=== PATIENT | female | born 1990 | race Hispanic/Latino ===

== ENCOUNTER 2019-03-18 03:24 | Inpatient (IN) | payer OTHER ==
[2019-03-18] MEDS ORDERED: PRENATAL VITAM1 EACH PO (06:48)
--- NOTE | 2019-03-18 10:08 | PR ---
[facility] [address], [place] [address] Signed Progress Notes IP Datetime Report Generated by CPN: 03/18/2019 10:08 PROGRESS NOTES: [id number] Impression: Normal progression of labor; Reassuring heart rate Procedures: Artificial ROM; Sterile Vag Exam Plan: Continue present management Informed Consent Obtain: Vaginal Delivery VITAL SIGNS: [id number] Vital Signs: Reviewed; Within Normal Limits EXAM: [id number] Dilatation: 3.5 Effacement: 75 Station: -2 Uterine Contractions: irregular MEMBRANES: [id number] Comments: Pt seen and examined. Doing well. Ctxs becoming uncomfortable. Cervix ripe. Discussed AROM and pt desires. AROM performed without difficulty for moderate amount of clear fluid. Mother and baby tolerated well. Pt may receive epidural on demand. Fetus A: [id number] FHR Baseline: 120 Variability: Moderate 6-25bpm Accelerations: 15X15 Decelerations: None FHR Category: Category I Presentation: Vertex Comments on Fetus A: No evidence of metabolic acidosis Fetus B: [id number] Signing Physician: Khris Rodríguez DO Copies: ~ *Electronically Signed* 03/18/19 1008 KHRIS RODRÍGUEZ DO PATIENT NAME: CRISSY GONZALEZ I PROGRESS NOTE DATE OF : 88 PHYSICIAN: KHRIS RODRÍGUEZ DO RPT #: [id number] REPORT IS CONFIDENTIAL AND NOT TO BE RELEASED WITHOUT AUTHORIZATION
--- NOTE | 2019-03-18 12:20 | PR ---
[facility] [address] [facility] [address] [place], [place] [address] Signed Progress Notes IP Datetime Report Generated by CPN: 03/18/2019 12:20 PROGRESS NOTES: [id number] Impression: Normal progression of labor; Reassuring heart rate Procedures: Artificial ROM; Sterile Vag Exam Plan: Continue present management Informed Consent Obtain: Vaginal Delivery VITAL SIGNS: [id number] Vital Signs: Reviewed; Within Normal Limits EXAM: [id number] Dilatation: 4.5 Effacement: 75 Station: -2 Uterine Contractions: q 2 minutes MEMBRANES: [id number] Comments: Pt seen and evaluated. Doing well. Comfortable w/ epidural. Ctxs regular. Progressing well. All questions answered. Fetus A: [id number] FHR Baseline: 130 Variability: Moderate 6-25bpm Accelerations: 15X15 Decelerations: None FHR Category: Category I Presentation: Vertex Comments on Fetus A: No evidence of metabolic acidosis Fetus B: [id number] Signing Physician: Khris Rodríguez DO Copies: ~ *Electronically Signed* 03/18/19 1220 KHRIS RODRÍGUEZ DO PATIENT NAME: CRISSY GONZALEZ I PROGRESS NOTE DATE OF : 88 PHYSICIAN: KHRIS RODRÍGUEZ DO RPT #: [id number] REPORT IS CONFIDENTIAL AND NOT TO BE RELEASED WITHOUT AUTHORIZATION
--- NOTE | 2019-03-18 17:13 | PR ---
[facility] [address] [facility] [place], [place] [address] Signed Progress Notes IP Datetime Report Generated by CPJasmina: 03/18/2019 17:13 PROGRESS NOTES: [id number] Impression: Normal progression of labor; Reassuring heart rate Procedures: Sterile Vag Exam Plan: Anticipate Vaginal Delivery Informed Consent Obtain: Vaginal Delivery VITAL SIGNS: [id number] Vital Signs: Reviewed; Within Normal Limits EXAM: [id number] Dilatation: 10.0 Effacement: 100 Station: 1 Uterine Contractions: q 2 minutes MEMBRANES: [id number] Comments: Pt seen and examined. Doing well. Comfortable w/ ctxs. Feeling some pressure. On exam, pt complete and +1 station. Will set up for delivery. Expect soon. Fetus A: [id number] FHR Baseline: 140 Variability: Moderate 6-25bpm Accelerations: 15X15 Decelerations: None FHR Category: Category I Presentation: Vertex Comments on Fetus A: No evidence of metabolic acidosis Fetus B: [id number] Signing Physician: Khris Rodríguez DO Copies: ~ *Electronically Signed* 03/18/19 7337 KHRIS RODRÍGUEZ DO PATIENT NAME: CRISSY GONZALEZ I PROGRESS NOTE DATE OF : 88 PHYSICIAN: KHRIS RODRÍGUEZ DO RPT #: [id number] REPORT IS CONFIDENTIAL AND NOT TO BE RELEASED WITHOUT AUTHORIZATION
--- NOTE | 2019-03-19 08:06 | PR ---
[facility] [address] [facility] [place] [facility] [place], [place] [address] Signed PP Progress Notes Datetime Report Generated by CPN: 03/19/2019 08:06 SUBJECTIVE: [id number] Pain: Within normal limits Nausea/Vomiting: Denies Flatus: Yes Bowel Movement: No Vital Signs: [id number] Vital Signs: Reviewed; Within Normal Limits EXAM: [id number] Cardiovascular: Normal Respiratory: Normal Abdomen/Uterus: Normal Lochia: Normal Vulva/Perineum: Not Done CVA Tenderness: Normal Extremities: Normal Progress: Normal Exam Comments: Fundus firm U-2 nontender IMPRESSION/PLAN/PROCEDURES: [id number] Impression: Normal progression Plan: Discharge Progress Notes: Pt seen and examined. Doing well. Ambulating, voiding, tolerating full diet. Pain and lochia minimal. well. Desires d/c home. No questions or concerns. DC instrucitons reviewed in detail. Signing Physician: Khris Rodríguez DO Copies: ~ *Electronically Signed* 03/19/19 08 KHRIS RODRÍGUEZ DO PATIENT NAME: CRISSY GONZALEZ I PROGRESS NOTE DATE OF : 88 PHYSICIAN: KHRIS RODRÍGUEZ DO RPT #: [id number] REPORT IS CONFIDENTIAL AND NOT TO BE RELEASED WITHOUT AUTHORIZATION
== END 2019-03-19 18:25 | disposition home or self-care (01) | DRG 807 ==
LOC: FBC 03:24
PROVIDERS: ADMIT Obstetrics & Gynecology
PROC: 10E0XZZ Delivery of Products of Conception, External Approach (ICD-10-PCS; principal; 2019-03-18)
PROC: 3E0P7VZ Introduction of Hormone into Female Reproductive, Via Natural or Artificial Opening (ICD-10-PCS; 2019-03-18)
PROC: 10907ZC Drainage of Amniotic Fluid, Therapeutic from Products of Conception, Via Natural or Artificial Opening (ICD-10-PCS; 2019-03-18)
PROC: 00HU33Z Insertion of Infusion Device into Spinal Canal, Percutaneous Approach (ICD-10-PCS; 2019-03-18)
PROC: 3E0R3BZ Introduction of Anesthetic Agent into Spinal Canal, Percutaneous Approach (ICD-10-PCS; 2019-03-18)
DX: O69.81X0 Labor and delivery complicated by cord around neck, without compression, not applicable or unspecified (principal); Z37.0 Single live birth; O99.02 Anemia complicating childbirth; D64.9 Anemia, unspecified; Z3A.39 39 weeks gestation of pregnancy
CPT/HCPCS: 01960; 36415; 85027; J2590; J2795; J3010